=== PATIENT | male | born 1985 | race African-American/Black ===

== ENCOUNTER 2017-08-29 18:09 | Emergency (ER) | payer BC ==
[2017-08-29] MEDS ORDERED: Acetaminophen 500 MG TAB ONE (19:33)
== END 2017-08-29 21:00 | disposition home or self-care (01) ==
LOC: ERS 18:09
DX: K04.7 Periapical abscess without sinus (principal); J11.1 Influenza due to unidentified influenza virus with other respiratory manifestations
CPT/HCPCS: 99283